=== PATIENT | male | born 1955 | race Caucasian/White ===

== ENCOUNTER 2022-01-14 15:32 | Outpatient (CLI) | payer BC ==
[2022-01-15 00:46] LABS: SARS-CoV-2 PCR by NAA Not Detected (NotDetected)
== END 2022-01-14 15:33 | disposition home or self-care (01) ==
LOC: LABBT 15:32
PROVIDERS: ATTEND Ophthalmology Retina Specialist
DX: H43.391 Other vitreous opacities, right eye (principal); Z20.822 Contact with and (suspected) exposure to COVID-19
CPT/HCPCS: U0003; U0005

== ENCOUNTER 2022-01-19 06:09 | Day surgery (SDC) | payer BC ==
[2022-01-15 10:33] VITALS: BMI 34.0
[2022-01-19] MEDS ORDERED: EPINEPHrine 0.3 MG in Ophthalmic Irrigation Solution 500 ML IRR SCH (06:30)
[2022-01-19] MEDS ORDERED: fentaNYL Citrate/PF 100 MCG/2 ML SYRINGE ONE (06:33)
[2022-01-19] MEDS ORDERED: Midazolam HCl 2 mg/2 ml Vial ONE (06:33)
[2022-01-19] MEDS ORDERED: Cyclopentolate 1% Opth Drop 2 ML BOT ONE (06:41)
[2022-01-19] MEDS ORDERED: Phenylephrine 2.5% Ophth Soln 5 ML BOT ONE (06:42)
[2022-01-19] MEDS ORDERED: Lidocaine 1% PF 5 ML VIAL ONE (07:11)
[2022-01-19] MEDS ORDERED: CEFAZOLIN 1 GM VIAL ONE (07:11)
[2022-01-19] MEDS ORDERED: Maxitrol 0.1% Opth Oint 3.5 GM TUBE ONE (07:11)
[2022-01-19] MEDS ORDERED: PROPOFOL 200 MG/20 ML VIAL ONE (07:11)
[2022-01-19] MEDS ORDERED: Triamcinolone 40 MG/ML VIAL ONE (07:11)
[2022-01-19] MEDS ORDERED: Lidocaine 4% PF 5 ML AMP ONE (07:11)
[2022-01-19] MEDS ORDERED: Bupivacaine 0.75% 10 ML VIAL ONE (07:11)
== END 2022-01-19 08:26 | disposition home or self-care (01) ==
LOC: SDC 06:09
PROVIDERS: ATTEND Ophthalmology Retina Specialist
PROC: 08T43ZZ Resection of Right Vitreous, Percutaneous Approach (ICD-10-PCS; principal; 2022-01-19)
DX: H43.391 Other vitreous opacities, right eye (principal)
CPT/HCPCS: J0171; J0690; J2250; J2704; J3301; J3490

== ENCOUNTER 2022-04-01 06:55 | Outpatient (CLI) | payer BC | END 2022-04-01 06:56 | disposition home or self-care (01) | LOC: LABBT 06:55 | PROVIDERS: ATTEND Ophthalmology Retina Specialist | DX: H43.392 Other vitreous opacities, left eye (principal); Z20.822 Contact with and (suspected) exposure to COVID-19 | CPT/HCPCS: 87811 ==

== ENCOUNTER 2022-04-06 05:59 | Day surgery (SDC) | payer BC ==
[2022-04-01 15:12] VITALS: BMI 34.7
[~2022-04-06 05:59] MED LIST: EPINEPHrine 0.3 MG in Ophthalmic Irrigation Solution 500 ML IRR SCH
[2022-04-06] MEDS ORDERED: Cyclopentolate 1% Opth Drop 2 ML BOT ONE (06:15)
[2022-04-06] MEDS ORDERED: Phenylephrine 2.5% Ophth Soln 5 ML BOT ONE (06:15)
[2022-04-06] MEDS ORDERED: PROPOFOL 20 ML ONE (06:35)
[2022-04-06] MEDS ORDERED: Midazolam HCl 2 mg/2 ml Vial ONE (06:35)
[2022-04-06] MEDS ORDERED: fentaNYL Citrate/PF 100 MCG/2 ML SYRINGE ONE (06:35)
[2022-04-06] MEDS ORDERED: Lidocaine 4% PF 5 ML AMP ONE (07:18)
[2022-04-06] MEDS ORDERED: Triamcinolone 40 MG/ML VIAL ONE (07:18)
[2022-04-06] MEDS ORDERED: Maxitrol 0.1% Opth Oint 3.5 GM TUBE ONE (07:18)
[2022-04-06] MEDS ORDERED: CEFAZOLIN 1 GM VIAL ONE (07:18)
[2022-04-06] MEDS ORDERED: Bupivacaine 0.75% 10 ML VIAL ONE (07:18)
[2022-04-06] MEDS ORDERED: Lidocaine 1% PF 5 ML VIAL ONE (07:18)
== END 2022-04-06 08:15 | disposition home or self-care (01) ==
LOC: SDC 05:59
PROVIDERS: ATTEND Ophthalmology Retina Specialist
PROC: 08T53ZZ Resection of Left Vitreous, Percutaneous Approach (ICD-10-PCS; principal; 2022-04-06)
DX: H43.392 Other vitreous opacities, left eye (principal)
CPT/HCPCS: J0171; J0690; J2250; J2704; J3301; J3490